=== PATIENT | female | born 1940 | race Caucasian/White ===

== ENCOUNTER 2021-09-11 12:21 | Outpatient (CLI) | payer MEDICARE, BC ==
[~2021-09-11 12:21] MED LIST: Iopamidol 300 61% 100 ML VIAL FS ONE
== END 2021-09-11 12:22 | disposition home or self-care (01) ==
LOC: CSHRAD 12:21
PROVIDERS: ATTEND Internal Medicine Hematology & Oncology
DX: C80.1 Malignant (primary) neoplasm, unspecified (principal); Z96.89 Presence of other specified functional implants; K83.9 Disease of biliary tract, unspecified; K86.89 Other specified diseases of pancreas; R91.8 Other nonspecific abnormal finding of lung field
CPT/HCPCS: 71260; 74177

== ENCOUNTER 2021-10-09 12:43 | Emergency (ER) | payer MEDICARE, BC ==
[~2021-10-09 12:43] MED LIST changes: -Iopamidol 300 61% 100 ML VIAL FS ONE; +Iopamidol 370 76% 100 ML VIAL ONE
[2021-10-09] MEDS ORDERED: Acetaminophen 325 MG TAB ONE (13:23)
[2021-10-09] MEDS ORDERED: Morphine 4 MG/ML VIAL ONE (13:23)
[2021-10-09] MEDS ORDERED: Cefepime 2 GM VIAL ONE (13:24)
[2021-10-09] MEDS ORDERED: Ondansetron PF 4 MG/2 ML Vial ONE (13:24)
[2021-10-09 13:46] LABS: MDiff Complete? YES; Mean Corpuscular HGB CONC 34.2 g/dL (32.0-36.0); Mean Corpuscular Hemoglobin 29.9 pg (27.0-33.0); Mean Corpuscular Volume 87.5 fl (81.6-98.3); Mean Platelet Volume 9.8 fl (7.4-10.4); Platelet Count 156 10x3/uL (150-450); RBC Distribution Width 12.8 % (11.5-14.5); Red Blood Cell (RBC) Count 3.68 10x6/uL (3.90-5.03); White Blood Cell (WBC) Count 1.6 10x3/uL (3.5-10.5)
[2021-10-09 13:55] LABS: ALT (SGPT) 32 U/L (8-55); AST (SGOT) 30 U/L (5-34); Albumin 3.2 g/dL (3.4-4.8); Alkaline Phosphatase 90 U/L (40-110); Anion Gap 16 mmol/L (10-20); BUN (Urea Nitrogen) 24 mg/dL (9.8-20.1); Bilirubin, Total 0.9 mg/dL (0.2-1.2); Calc. Creatinine Clearance 0 mL/min (70-130); Calcium 9.3 mg/dL (7.8-10.44); Carbon Dioxide 23 mmol/L (23-31); Chloride 102 mmol/L (98-107); Glucose 127 mg/dL (83-110); Lipase 37 U/L (8-78); Potassium 4.2 mmol/L (3.5-5.1); Protein, Total 6.2 g/dL (5.8-8.1); Sodium 137 mmol/L (136-145)
[2021-10-09 14:07] LABS: Bilirubin 1+ (Negative); Blood, Urine Negative (Negative); Clarity Clear (Clear); Glucose, Urine (Dipstick) Normal (Negative); Ketone, Urine Negative (Negative); Leukocyte 25 (Negative); Nitrite Negative (Negative); Protein, Urine (Dipstick) 15 mg/dl (Neg-Trace); Specific Gravity, Urine 1.015 (1.002-1.036); Urobilinogen Normal mg/dL (Less than 2)
[2021-10-09 14:21] LABS: SARS-CoV-2 NAA Rapid Test Not Detected (NotDetected)
[2021-10-09 14:34] LABS: Bacteria/HPF 2+ HPF (None Seen); RBC/HPF 0-3 HPF (0-3); Squamous Epithelial 0-3 HPF (0-3)
[2021-10-09 14:36] LABS: Eosinophils 1 % (0-10); Lymphocytes 68 % (21-51); Monocytes 3 % (0-10); Neutrophil 28 % (42-75)
[2021-10-09 14:36] LABS: Mucous/LPF 3+ LPF (<2+)
[2021-10-09 14:43] LABS: RBC Morphology Normal
[2021-10-09 14:47] LABS: Platelet Morphology Comment Appears Adequate
[2021-10-09 14:49] LABS: Reflex for Review?? YES
== END 2021-10-09 17:18 | disposition short-term general hospital (02) ==
LOC: CSHERS 12:43
DX: N39.0 Urinary tract infection, site not specified (principal); R50.9 Fever, unspecified; Z20.822 Contact with and (suspected) exposure to COVID-19; E10.9 Type 1 diabetes mellitus without complications; E78.5 Hyperlipidemia, unspecified; E78.00 Pure hypercholesterolemia, unspecified; I10 Essential (primary) hypertension; Z79.899 Other long term (current) drug therapy; Z79.82 Long term (current) use of aspirin; Z79.84 Long term (current) use of oral hypoglycemic drugs; Z79.01 Long term (current) use of anticoagulants
CPT/HCPCS: 36415; 71045; 71275; 74177; 80053; 81003; 81015; 83605; 83690; 83880; 84484; 85025; 85060; 87040; 87086; 87804; 93005; J0692; J2270; J2405; J3370; U0002

== ENCOUNTER 2022-03-11 15:39 | Emergency (ER) | payer MEDICARE, BC ==
[~2022-03-11 15:39] MED LIST changes: +Iopamidol 300 61% 100 ML VIAL FS ONE; -Iopamidol 370 76% 100 ML VIAL ONE
[2022-03-11] MEDS ORDERED: Fentanyl 100 MCG/2 ML VIAL ONE (16:12)
[2022-03-11] MEDS ORDERED: Promethazine HCl 25 MG/ML VIAL ONE (16:13)
[2022-03-11 16:19] LABS: #Basophils 0.1 10x3/uL (0.0-0.2); #Eosinphils 0.1 10x3/uL (0.0-0.5); #Monocytes 0.7 10x3/uL (0.0-1.1); #Neutrophils 6.2 10x3/uL (1.5-8.4); %Basophils 0.6 % (0.0-2.0); %Lymphocytes 12.1 % (18.0-47.0); %Monocytes 8.8 % (0.0-10.0); %Neutrophils 77.1 % (40.0-75.0); Hemoglobin 10.1 g/dL (12.0-15.5); Mean Corpuscular HGB CONC 33.4 g/dL (32.0-36.0); Mean Corpuscular Hemoglobin 32.4 pg (27.0-33.0); Mean Corpuscular Volume 96.8 fl (81.6-98.3); Mean Platelet Volume 9.4 fl (7.4-10.4); Platelet Count 206 10x3/uL (150-450); RBC Distribution Width 18.6 % (11.5-14.5); Red Blood Cell (RBC) Count 3.12 10x6/uL (3.90-5.03)
[2022-03-11 16:37] LABS: PTT 27.8 sec (22.0-33.0); Prothrombin Time 11.2 sec (9.5-12.1)
[2022-03-11 16:41] LABS: ALT (SGPT) 16 U/L (8-55); AST (SGOT) 36 U/L (5-34); Albumin 2.6 g/dL (3.4-4.8); Alkaline Phosphatase 108 U/L (40-110); Anion Gap 12 mmol/L (10-20); BUN (Urea Nitrogen) 18 mg/dL (9.8-20.1); Bilirubin, Total 0.4 mg/dL (0.2-1.2); Calc. Creatinine Clearance 0 mL/min (70-130); Calcium 8.5 mg/dL (7.8-10.44); Carbon Dioxide 24 mmol/L (23-31); Chloride 104 mmol/L (98-107); Estimated GFR 69; Globulin 2.2 g/dL (2.4-3.5); Glucose 144 mg/dL (83-110); Potassium 3.8 mmol/L (3.5-5.1); Protein, Total 4.8 g/dL (5.8-8.1); Sodium 136 mmol/L (136-145)
[2022-03-11 16:46] LABS: SARS-CoV-2 NAA Rapid Test Not Detected (NotDetected)
[2022-03-11 17:27] LABS: Lipase 5 U/L (8-78)
[2022-03-11] MEDS ORDERED: Piperacillin/Tazobactam 4.5 GM VIAL ONE (17:33)
[2022-03-11 18:27] LABS: Bilirubin Neg (Negative); Blood, Urine Negative (Negative); Clarity Clear (Clear); Glucose, Urine (Dipstick) Normal (Negative); Ketone, Urine Negative (Negative); Leukocyte Negative (Negative); Nitrite Negative (Negative); Protein, Urine (Dipstick) Negative (Neg-Trace); Specific Gravity, Urine 1.015 (1.005-1.030); Urobilinogen Normal mg/dL (Less than 2)
[2022-03-11 19:17] LABS: Lactic Acid 1.5 mmol/L (0.5-2.2)
== END 2022-03-11 23:54 | disposition short-term general hospital (02) ==
LOC: CSHERS 15:39
DX: C25.9 Malignant neoplasm of pancreas, unspecified (principal); R65.10 Systemic inflammatory response syndrome (SIRS) of non-infectious origin without acute organ dysfunction; E78.5 Hyperlipidemia, unspecified; E78.00 Pure hypercholesterolemia, unspecified; I10 Essential (primary) hypertension; E10.9 Type 1 diabetes mellitus without complications; Z20.822 Contact with and (suspected) exposure to COVID-19; Z53.21 Procedure and treatment not carried out due to patient leaving prior to being seen by health care provider
CPT/HCPCS: 0240U; 71045; 74177; 80053; 81003; 83605; 83690; 85025; 85610; 85730; 87040; 87086; 96361; 96365; 96367; 96375; 99285; 36415; J2543; J2550; J3010; Q9967

== ENCOUNTER 2023-04-03 09:06 | Outpatient (CLI) | payer MEDICARE, BC | END 2023-04-03 09:07 | disposition home or self-care (01) | LOC: CSHMRI 09:06 | PROVIDERS: ATTEND Physician Assistant Medical | DX: C25.9 Malignant neoplasm of pancreas, unspecified (principal); R79.89 Other specified abnormal findings of blood chemistry; R63.4 Abnormal weight loss; K76.89 Other specified diseases of liver | CPT/HCPCS: 74183; 82565 ==

== ENCOUNTER 2024-05-31 08:10 | Outpatient (CLI) | payer MEDICARE ==
[2024-05-31] MEDS ORDERED: Iopamidol 300 61% 100 ML VIAL FS ONE (11:07)
== END 2024-05-31 08:11 | disposition home or self-care (01) ==
LOC: CSHCT 08:10
PROVIDERS: ATTEND Internal Medicine Hematology & Oncology
DX: C25.0 Malignant neoplasm of head of pancreas (principal); R30.0 Dysuria; D50.8 Other iron deficiency anemias; R91.8 Other nonspecific abnormal finding of lung field; J92.9 Pleural plaque without asbestos
CPT/HCPCS: 71260; 74177

== ENCOUNTER 2025-03-30 09:50 | Day surgery (SDC) | payer MEDICARE ==
[2025-03-25 09:51] VITALS: BMI 21.7
[2025-03-30] MEDS ORDERED: Lidocaine 2% MPF 10 ML AMP (For Epidural Use) ONE (11:00)
[2025-03-30] MEDS ORDERED: Bupivacaine/Epinephrine 0.25% 30 ML VIAL ONE (11:02)
[2025-03-30] MEDS ORDERED: Ketorolac Tromethamine 30 MG (1 mL) VIAL ONE (11:07)
[2025-03-30] MEDS ORDERED: CEFAZOLIN 2 GM VIAL ONE (11:15)
== END 2025-03-30 13:45 | disposition home or self-care (01) ==
LOC: CSHSDC 09:50
PROVIDERS: ATTEND Surgery
PROC: 0JH60XZ Insertion of Tunneled Vascular Access Device into Chest Subcutaneous Tissue and Fascia, Open Approach (ICD-10-PCS; principal; 2025-03-30)
DX: C25.3 Malignant neoplasm of pancreatic duct (principal); E11.40 Type 2 diabetes mellitus with diabetic neuropathy, unspecified; I25.10 Atherosclerotic heart disease of native coronary artery without angina pectoris; I10 Essential (primary) hypertension; I48.91 Unspecified atrial fibrillation; K21.9 Gastro-esophageal reflux disease without esophagitis; E78.5 Hyperlipidemia, unspecified; G47.00 Insomnia, unspecified; Z86.718 Personal history of other venous thrombosis and embolism; Z90.49 Acquired absence of other specified parts of digestive tract; Z90.710 Acquired absence of both cervix and uterus; Z98.890 Other specified postprocedural states; Z95.1 Presence of aortocoronary bypass graft; Z88.8 Allergy status to other drugs, medicaments and biological substances; Z79.82 Long term (current) use of aspirin; Z79.84 Long term (current) use of oral hypoglycemic drugs; Z79.899 Other long term (current) drug therapy
CPT/HCPCS: 36561; 71045; C1788; J1100; J1642; J1885